=== PATIENT | female | born 1965 | race Caucasian/White ===

== ENCOUNTER → 2023-09-18 | Outpatient (CLI) | payer BC ==
[2023-09-18 17:22] LABS: Alternaria alternata IgE 0.11 kU/L; Aspergillus fumagatus IgE <0.10 kU/L; Birch IgE <0.10 kU/L; Cat Epith & Dander IgE 0.87 kU/L; Cladosporian herbarum IgE <0.10 kU/L; Clam IgE <0.10 kU/L; Cockroach IgE <0.10 kU/L; Codfish IgE <0.10 kU/L; Dermato. farinae IgE <0.10 kU/L; Dog Dander IgE 0.14 kU/L; Egg White IgE 1.05 kU/L; Elm IgE <0.10 kU/L; Maple (Box Elder) IgE <0.10 kU/L; Oak IgE <0.10 kU/L; Peanut IgE 0.15 kU/L; Ragweed,Common IgE <0.10 kU/L; Red Top (Bentgrass) IgE <0.10 kU/L; Scallop IgE <0.10 kU/L; Shrimp IgE <0.10 kU/L; Soybean IgE <0.10 kU/L; Walnut IgE (Food) <0.10 kU/L
== END | disposition home or self-care (01) ==
LOC: LABWHC1 09:18
PROVIDERS: ATTEND Internal Medicine Critical Care Medicine
DX: J45.909 Unspecified asthma, uncomplicated (principal); R05.3 Chronic cough
CPT/HCPCS: 36415; 82785; 85008; 86003

== ENCOUNTER 2023-09-28 11:36 | Day surgery (SDC) | payer BC ==
[~2023-09-28 11:36] MED LIST: LACTATED RINGERS 1,000 ML IV SCH
[2023-09-28] MEDS: LACTATED RINGERS 1,000 ML IV SCH (11:48)
[2023-09-28 12:12] LABS: Glucose,Whole Blood 154 mg/dL (70-110)
[2023-09-28] MEDS: ATROPINE SULFATE 0.4 MG/ML 1 ML VIAL IM ONE (12:23)
[2023-09-28 12:26] VITALS: RESP 20; TEMP 96.8
[2023-09-28] MEDS ORDERED: MIDAZOLAM 2 MG/2 ML VIAL ONE (13:53)
[2023-09-28] MEDS ORDERED: GLYCOPYRROLATE 0.2 MG/ML 2 ML VIAL ONE (13:53)
[2023-09-28] MEDS ORDERED: PROPOFOL 10 MG/ML 20 ML VIAL IV ONE (13:53)
[2023-09-28] MEDS: LIDOCAINE 2% INJ 20 MG/ML INTRATRACH ONE (14:06)
[2023-09-28 15:18] VITALS: BP 106/65; PULSE 96
--- NOTE | 2023-09-28 20:48 | PCN ---
PROCEDURE NOTE PULMONARY/CRITICAL CARE PROCEDURE NOTE PROCEDURES PERFORMED: Bronchoscopy, airway examination, therapeutic lavage, BAL. PREOPERATIVE DIAGNOSIS: Chronic cough. POSTOPERATIVE DIAGNOSIS: Chronic cough. DESCRIPTION OF PROCEDURE: There was informed consent and universal timeout. The patient's procedure was done and was in room #1. Anesthesia provided monitored anesthesia care. The rework operator is Dr. Flores, the registered nurse surgical services was Dr. Kaleigh Parmar. After the patient was being fully monitored and after the patient was sedated by anesthesia, the bronchoscope was inserted through the right nostril. It passed through the right nasopharynx into the oropharynx. The hypopharynx was identified and topicalized. The hypopharyngeal structures including the anterior commissure, true cords, false cords, arytenoids, piriform sinuses, right and left, vallecula, all appeared normal. The hypopharynx was a bit crowded. There was no mass or lesion. The glottic opening was topicalized. The bronchoscope was pushed through the glottic opening into the trachea. There were thick secretions in the trachea and they were suctioned. The tracheal judith was sharp. The right and left mainstem were topicalized. The right upper lobe, the both lungs were evaluated. The right upper lobe and its 3 segments, the right middle lobe and its 2 segments, the right lower lobe and its 5 segments, left upper lobe proper and its 2 segments, lingula and its 2 segments, the left lower lobe and its 4 segments all had similar findings of moderate bronchitis. There were erythema and hyperemia of the airways. There was no dominant mass or tumor. There were secretions that were suctioned without difficulty. The patient did not bleed. The bronchoscope was wedged into the right middle lobe. A formal BAL took place. 30 mL of turbid fluid was recovered. 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 The bronchoscope was then withdrawn. There was no immediate complication. The patient will be recovered. MMODL / IJN: [id number] /
[2023-09-29 01:37] LABS: Appearance,BF Hazy (Clear); RBC, Body Fluid 9625 /UL (0-2000)
[2023-10-01 09:17] LABS: Nucleated Cells, Body Fluid 50 /UL
== END 2023-09-28 15:26 | disposition home or self-care (01) ==
LOC: ORWHC2ENDO 11:36
PROVIDERS: ATTEND Internal Medicine Critical Care Medicine
DX: J45.909 Unspecified asthma, uncomplicated (principal); I12.9 Hypertensive chronic kidney disease with stage 1 through stage 4 chronic kidney disease, or unspecified chronic kidney disease; I25.10 Atherosclerotic heart disease of native coronary artery without angina pectoris; I31.9 Disease of pericardium, unspecified; G47.33 Obstructive sleep apnea (adult) (pediatric); E03.9 Hypothyroidism, unspecified; E78.5 Hyperlipidemia, unspecified; N18.30 Chronic kidney disease, stage 3 unspecified; Z90.710 Acquired absence of both cervix and uterus; Z90.89 Acquired absence of other organs
CPT/HCPCS: 87798 ×3; 87496; 87498; 87529; 88108; 88305; 89050; 87502; 87634; 87070; 87205; 87116; 87102; 87206; 87635; 31624; J2001; J2250; J2704

== ENCOUNTER → 2023-10-01 | Outpatient (CLI) | payer BC ==
[2023-10-01 13:16] LABS: African American GFR (CKD) 55 (>60 ml/min/1.73 sqM); Blood Urea Nitrogen 34 mg/dL (7-17); Non-African American GFR(CKD) 48 (>60 ml/min/1.73 sqM)
--- NOTE | 2023-10-03 06:45 | CT ---
EXAMINATION TYPE: CT chest w con DATE OF EXAM: 10/01/2023 COMPARISON: NONE HISTORY: Cough, SOB, lung nodules CT DLP: 415 mGycm. Automated Exposure Control for Dose Reduction was Utilized. TECHNIQUE: CT scan of the thorax is performed following with IV Contrast, patient injected with 80 m L of Isovue 370. FINDINGS: LUNGS: There is 6 x 5 mm right upper lobe pulmonary nodule axial image 8. There is 9 x 8 mm posterior right upper lobe pulmonary nodule axial image 16. There is 4 mm right lower lobe pulmonary nodule ax ial image 25. No left-sided greater than 5 mm pulmonary nodules. No focal consolidation. No pleural e ffusion or pneumothorax seen bilaterally. MEDIASTINUM: There are no greater than 1 cm hilar or mediastinal lymph nodes. No pericardial effusi on is seen. At least moderate coronary artery calcification. Heart size upper limits of normal. OTHER: Multilevel spurring in the thoracic spine. Lobulated contour to renal cortices. No hydronephro sis seen bilaterally. IMPRESSION: Some scattered right-sided pulmonary nodules up to 9 mm. Underlying mass or neoplasm not excluded. Consider short-term CT follow-up and/or PET CT follow-up to reassess.
== END | disposition home or self-care (01) ==
LOC: RADCTMAIN 12:07
PROVIDERS: ATTEND Internal Medicine Critical Care Medicine
DX: R91.8 Other nonspecific abnormal finding of lung field (principal); R05.9 Cough, unspecified; R06.02 Shortness of breath
CPT/HCPCS: 82565; 84520; 71260; 36415; Q9967

== ENCOUNTER → 2023-10-18 | Outpatient (CLI) | payer BC ==
--- NOTE | 2023-10-20 14:29 | PE ---
EXAMINATION TYPE: PET CT fusion skull to thigh DATE OF EXAM: 10/18/2023 COMPARISON: CT chest 10/01/2023 Prior PET/CT: None at this location HISTORY: Lung nodule TECHNIQUE: Following the intravenous administration of 10.70 mCi of F-18 FDG, whole body images are performed from the skull base to the midthigh. Images are reviewed on the computer in the coronal, a xial, and sagittal planes. Reconstructed rotating images are created on independent workstation and reviewed on the computer. A localization and attenuation correction CT is performed in conjunction with the PET scan. DLP: 764.95 mGycm SCAN: Initial Blood glucose: 129 mg/dL Average Mediastinum SUV: 2.06 Average Liver SUV: 3.48 FINDINGS: Brain: There is a focus of radiotracer within the subcortical white matter left centrum semiovale, im age 12, SUV 10.53. Additional workup with MRI with contrast is recommended. NECK: No abnormal uptake THORAX: No abnormal uptake. At the nodule in the posterior right upper lung field SUV is 0.66. A posterior lateral mid right lung nodule, image 102, is a density of 0.64. Nodule in the right apex has an SUV of 0.95, image 78. ABDOMEN: No abnormal uptake PELVIS: No abnormal uptake OSSEOUS STRUCTURES: No abnormal uptake LOCALIZATION CT: Nodules correlate with the prior low-dose CT chest. COMPARISON: No significant interval change IMPRESSION: 1. There is a focus of radiotracer within the left centrum semiovale posterior lateral section. This is asymmetric. Additional evaluation with contrasted MRI is recommended. 2. No suspicious radiotracer accumulation within the neck, thorax, abdomen or pelvis to suggest prima ry neoplasm. No suspicious uptake within lung nodules. Follow-up CT chest in 6 months to confirm stab ility is recommended.
== END | disposition home or self-care (01) ==
LOC: RADPETMAIN 08:16
PROVIDERS: ATTEND Internal Medicine Critical Care Medicine
DX: R91.8 Other nonspecific abnormal finding of lung field (principal)
CPT/HCPCS: 78815; A9552